=== PATIENT | male | born 1955 | race Caucasian/White ===

== ENCOUNTER → 2017-12-25 | Outpatient (CLI) | payer OTHER ==
--- NOTE | 2017-12-25 17:18 | Diagnostic Imaging Report ---
Indications: Pain and swelling Technique: Two views of the right forearm Comparison: None Findings: There is a transverse fracture of the radial neck. This appears to be slightly impacted and minimally angulated. This appears to be slightly comminuted. It does not appear to involve the articular surface. No other acute fractures. No dislocations. Impression: Positive for minimally angulated and impacted for proximal radial neck fracture, as described Findings discussed by phone with Dr. Baez at the time of interpretation
== END | disposition home or self-care (01) ==
LOC: RAD 14:46
DX: S52.132A Displaced fracture of neck of left radius, initial encounter for closed fracture (principal)